=== PATIENT | male | born 2005 | race Caucasian/White ===

== ENCOUNTER 2025-02-16 17:27 | Inpatient (IN) ==
[2025-02-16 17:50] LABS: Hematocrit (blood only) 43.4 % (42.0-52.0); Hemoglobin 14.9 g/dl (14.0-18.0); Immature Granulocytes # (auto) 0.03 K/uL (0.01-0.20); Immature Granulocytes % (auto) 0.3 %; Mean Corpuscular Hemoglobin 30.7 pg (25.0-34.0); Mean Corpuscular Volume 89.5 fL (80.0-100.0); Platelet Count 258 K/uL (130-400); RDW Standard Deviation 42.2 fL (36.4-46.3); Red Blood Count 4.85 M/uL (4.70-6.10); White Blood Count 8.86 K/ul (4.8-10.8)
[2025-02-16 17:53] LABS: Appearance Urine Clear (Clear); Glucose Urine UA Negative (Negative)
[2025-02-16 18:08] LABS: Alanine Aminotransferase 15.0 U/L (7-52); Albumin Globulin Ratio 1.3 (0.9-2); Albumin Level 4.6 gm/dl (3.4-5.0); Alkaline Phosphatase 70.0 U/L (34-104); Anion Gap 8.0 (3-11); Bilirubin,Total 0.6 mg/dl (0.2-1.0); Blood Urea Nitrogen 31.0 mg/dl (6-23); Calcium 9.3 mg/dl (8.6-10.3); Carbon Dioxide 26.0 mmol/L (21-32); Chloride 102.0 mmol/L (98-107); Creatinine Clr Calc Pharmacy 87.7 ml/min; Globulin 3.5 gm/dl (2.5-4.0); Glucose 96.0 mg/dl (70-99(Fasting)); Potassium 4.1 mmol/L (3.5-5.1); Sodium 136.0 mmol/L (136-145); Total Protein 8.1 gm/dl (6.0-8.3)
[2025-02-16 18:22] LABS: Acetaminophen < 3 ug/ml (10-30); Salicylate < 3.0 mg/dl (3.0-30)
[2025-02-16 18:24] LABS: Thyroid Stimulating Hormone 7.259 uIu/ml (0.300-4.500)
[2025-02-16 18:27] LABS: Amphetamines+Metham, Urine Neg (Neg); MDMA (Ecstacy), Urine Neg (Neg); Marijuana, Urine Neg (Neg)
[2025-02-16 18:58] LABS: T4 Free Thyroxine 0.91 ng/dl (0.61-1.60)
--- NOTE | 2025-02-16 19:27 | Emergency Department Note ---
Impression & Plan Major depressive disorder with current active episode ED Provider Note NAME: ANN SEVERINO AGE: 19 SEX: M : 2005 ARRIVES VIA: [employer] INFORMANT: Patient, ED PROVIDER(S): Gilbert Cervantes DO CHIEF COMPLAINT: psychiatric evaluation HPI: This is a 19-year-old male with the PMHx of depression following up with therapist presenting to [facility] for further evaluation of suicidal ideations. Patient is accompanied by police who provide additional history. police state the patient was cooperative en route. Patient reports intrusive suicidal ideations. He recently broke up with a long-term partner. Patient states that he visited a parking garage roof multiple times near his apartment with plans for suicide. He states that he wrote a suicide note but stopped in the middle of it yesterday as he has a good social support system and felt that it was unnecessary. Patient now presents for evaluation. He does report suicidal ideations. He denies homicidal ideations. No auditory or visual hallucinations. Patient states that his therapist recommended emergency department evaluation. Patient offers no other complaints, today. ADDITIONAL HISTORY OBTAINED: Per HPI Chronic Medical/Social Conditions Affecting Care: Per HPI PAST MEDICAL HISTORY: See Below PAST SURGICAL HISTORY: See Below FAMILY HISTORY: See Below SOCIAL HISTORY: See Below HOME MEDICATIONS: See Below ALLERGIES: See Below VITALS: See Below PHYSICAL EXAMINATION: GENERAL: Alert, well developed, well nourished, no acute distress HEAD: Normocephalic, atraumatic EYES: EOM's intact, sclera anicteric, conjunctiva clear OROPHARYNX: Airway patent and mucous membranes moist LUNGS: No respiratory distress, normal respiratory rate and effort HEART: Well perfused, regular rate ABDOMEN: Abdomen non-distended SKIN: Normal color, dry EXTREMITIES: No gross deformities, no edema NEURO: Alert, oriented x3, appropriate for age, moves all four extremities, normal speech PSYCH: depressed mood, flat affect, no psychosis MEDICAL DECISION MAKING: Differential diagnoses includes but not limited to suicidal ideation, homicidal ideation, hallucinations, depression, anxiety, personality disorder In summary, this is a 19-year-old who presented with suicidal ideations. Differential as above. Nursing notes and pertinent past medical records reviewed. Vital signs reviewed and the patient is afebrile and HDS. History, physical obtained and significant for depression. While the patient does have a social support system as well as a therapist, I have deemed the patient high risk for suicide as he has discussed with me suicidal behavior and he seems to be a significant threat to himself. He later told case management that he did not feel he needed to stay in the hospital. I feel this is very unsafe for the patient to be discharged at this time. 302 to be petitioned if he is unwilling to voluntarily commit to inpatient stay. Psychiatric labs including CBC, CMP, ethanol, COVID-19, U tox ordered to evaluate for their symptoms. Labs unremarkable to explain symptoms. 201 signed after discussion and informed consent with the patient. Patient is medically appropriate for psychiatric evaluation. Based on the above, including the patient's age, coexisting illnesses, labs, imaging, and exam findings the decision to treat as an inpatient. I discussed my findings with the patient and they understand and agree with the treatment plan. Vitals Q shift ordered. Med rec ordered. Care Management consulted. Diet ordered with suicide precautions and one-to-one precautions. [facility]. Consults/Care Managements Discussions: Per [facility] ER treatment provided: See above Procedures:none Critical Care: None The chart was completed utilizing [employer] Speech voice recognition software. Grammatical errors, random word insertions, pronoun errors, and incomplete sentences are an occasional consequence of this system due to software limitations, ambient noise, and hardware issues. Any formal questions or concerns about the content, text, or information contained within the body of this dictation should be directly addressed to the physician for clarification. Past Med/Surg History Problem List (Updated 02/17/25 @ 01:44 by Gilbert Cervantes DO) Major depressive disorder with current active episode (Acute) Social History Smoking Status: Never smoker Preferred Language: Sudanese Communication Ability: Effective [employer] Required: No Beliefs That Will Affect Care: None Feels Safe at Home: Yes Gender Identity: Male Assistive Devices: None Allergies Allergies Allergy/AdvReac Type Severity Reaction Status Date / Time No Known Allergies Allergy Verified 02/16/25 20:28 Home Meds Home Medications Medication Instructions Recorded Confirmed No Known Home Medications 02/16/25 02/16/25 Results & Data (ED) Vital Signs Vital Signs - 24 hr 02/16/25 17:29 02/16/25 19:28 02/16/25 19:28 Temperature 37.0 C Temperature Source Oral Pulse Rate 72 Pulse Rate [Finger] 65 Respiratory Rate 20 16 Respiratory Effort / Characteristics Non-Labored Spontaneous Non-Labored Spontaneous Respiratory Depth Normal Normal Respiratory Pattern Regular Regular Blood Pressure 172/76 H Blood Pressure [Left Arm] 130/74 Blood Pressure Mean 108 Blood Pressure Mean [Left Arm] 92 Blood Pressure Position [Left Arm] Sitting Pulse Oximetry 98 99 99 Oxygen Delivery Method Room Air Room Air Room Air Sepsis Recent Fever Within 48 Hours No Sepsis New/Unexplained Change in Mental Status N/A Sepsis Action Taken by Nursing No Action Required Laboratory Data 02/16/25 17:35 02/16/25 17:35 Lab Results 02/16/25 02/16/25 Range/Units 17:35 17:45 WBC 8.86 (4.8-10.8) K/ul RBC 4.85 (4.70-6.10) M/uL Hgb 14.9 (14.0-18.0) g/dl Hct 43.4 (42.0-52.0) % MCV 89.5 (80.0-100.0) fL MCH 30.7 (25.0-34.0) pg MCHC 34.3 (32.0-36.0) g/dL RDW Std Deviation 42.2 (36.4-46.3) fL RDW Coeff of Jairon 12.9 (11.5-14.5) % Plt Count 258 (130-400) K/uL MPV 9.6 (9.4-12.4) fL Immature Gran % (Auto) 0.3 % Neut % (Auto) 66.4 % Lymph % (Auto) 23.3 % Johnston % (Auto) 7.6 % Eos % (Auto) 1.9 % Baso % (Auto) 0.5 % Neut # (Auto) 5.89 (1.40-6.50) K/uL Lymph # (Auto) 2.06 (1.20-3.40) K/uL Johnston # (Auto) 0.67 H (0.11-0.59) K/uL Eos # (Auto) 0.17 (0.00-0.50) K/uL Baso # (Auto) 0.04 (0.00-0.20) K/uL Immature Gran # (Auto) 0.03 (0.01-0.20) K/uL Sodium 136 (136-145) mmol/L Potassium 4.1 (3.5-5.1) mmol/L Chloride 102 (98-107) mmol/L Carbon Dioxide 26 (21-32) mmol/L Anion Gap 8 (3-11) BUN 31 H (6-23) mg/dl Creatinine 1.30 (0.6-1.4) mg/dl Est Cr Clr Drug Dosing 87.7 ml/min eGFR 80.65 BUN/Creatinine Ratio 23.8 H (10-20) Glucose 96 (70-99(Fasting)) mg/dl Calcium 9.3 (8.6-10.3) mg/dl Total Bilirubin 0.6 (0.2-1.0) mg/dl AST 20 (13-39) U/L ALT 15 (7-52) U/L Alkaline Phosphatase 70 (34-104) U/L Total Protein 8.1 (6.0-8.3) gm/dl Albumin 4.6 (3.4-5.0) gm/dl Globulin 3.5 (2.5-4.0) gm/dl Albumin/Globulin Ratio 1.3 (0.9-2) TSH 7.259 H (0.300-4.500) uIu/ml Free T4 0.91 (0.61-1.60) ng/dl Urine Color Yellow Urine Appearance Clear (Clear) Urine pH 6.0 (4.5-7.5) Ur Specific [place] 1.024 (1.000-1.030) Urine Protein Negative (Negative) Urine Glucose (UA) Negative (Negative) Urine Ketones Trace H (Negative) Urine Blood Negative (Negative) Urine Nitrite Negative (Negative) Urine Bilirubin Negative (Negative) Urine Urobilinogen Negative (Negative) Ur Leukocyte Esterase Negative (Negative) Urine Comment Salicylates < 3.0 L (3.0-30) mg/dl Urine Opiates Screen Neg (Neg) Ur Methadone, Qual Neg (Neg) Urine Fentanyl Screen Neg (Neg) Acetaminophen < 3 L (10-30) ug/ml Urine Barbiturates Neg (Neg) Ur Phencyclidine (PCP) Neg (Neg) U Amphetamin/Meth Scrn Neg (Neg) MDMA (Ecstasy) Screen Neg (Neg) U Benzodiazepines Scrn Neg (Neg) Ur Cocaine Metabolite Neg (Neg) U Marijuana (THC) Screen Neg (Neg) Ethyl Alcohol mg/dL < 10.0 (<10.0) mg/dl SARS-CoV-2, RNA, NAAT NEGATIVE (NEGATIVE) Discharge Plan Visit Data Chief Complaint: Psychiatric Symptoms/Problems ED Provider: Gilbert Cervantes Discharge Problem: Major depressive disorder with current active episode Patient Disposition: Admitted As Inpatient Condition: Serious
[2025-02-16] MEDS ORDERED: BISMUTH SUBSALICYLATE 262 MG CHEW PO PRN (21:22)
[2025-02-16] MEDS ORDERED: MAGNESIUM HYDROXIDE SUSP 30 ML UDC PO PRN (21:22)
[2025-02-16] MEDS ORDERED: ACETAMINOPHEN 325 MG TAB PO PRN (21:22)
[2025-02-16] MEDS ORDERED: SODIUM CHLORIDE 0.65% NA SOLN 45 ML (OCEAN) PRN (21:22)
[2025-02-16] MEDS ORDERED: ALUMINUM/MAGNESIUM SUSP 30 ML UDC PO PRN (21:22)
--- NOTE | 2025-02-17 08:26 | History & Physical ---
Date of Service February 17, 2025 Impression / Recommendations Impression Patient is a 19-year-old male [employer] re[employer], admitted on a 201 for recent suicidal ideation, and acts of furtherance including going to potential suicide site and initiation of a suicide letter. Patient has many strengths, and has been consistently denying significant depression. However, he does report racing thoughts and excessive rumination, which can lead him to hopelessness and intense distress. Does report a chronic history of anxiety, especially as it relates to self evaluation and interpersonal relationships. On the one hand, he has is able to identify multiple sources of self-esteem (which are primarily achievement based), and on the other hand he struggling with questioning his worth and purpose in the aftermath of a breakup. Diagnostically, I think that this best represents a baseline generalized anxiety disorder, now with an adjustment disorder with depressed mood. at this time, not suspecting a borderline personality disorder or cluster B features, since it sounds like he has many stable relationships, and this break-up was a significant trigger because they have been together about 2 years. Discussed with patient that my major concern is that he is downplaying the seriousness of his suicidality recently, and that he did not follow through with his safety plan when symptoms worsened on Friday. My primary goal for him during this admission is to create a safety plan that he can easily access and use if his symptoms worsen after here. Also encouraged building self-awareness about his warning signs, so he can enact his coping skills before things get out of hand. Encourage participation in groups, completion of his safety plan, and scheduling a family meeting. I also brought up the possibility of medication. We discussed SSRIs, which can decrease the intensity of anxiety symptoms for him. Specifically, he may find he has fewer racing thoughts and ruminations. This time, patient declines medication, as he is concerned about possible side effects. I did encourage him to consider ongoing outpatient therapy, and reconsider medication if he is not seeing much improvement with therapy alone. Recommended patient to stay for at least several days in order to complete the steps and ensure a more thorough safety plan before he leaves. After meeting with me, he did request to sign a 72-hour notice. Overall, I spent a total of 80 minutes on this patient's care, including review of chart/records, direct evaluation of the patient, ordering medication, coordination with nursing, interdisciplinary team meeting, and documentation. (1) Generalized anxiety disorder: (2) Adjustment disorder with depressed mood: Plan The patient was admitted to the [facility] ([facility] mental health unit) on q15 min checks (behavioral with suicide precautions) for safety. The patient will participate in group, recreational, and milieu therapies and will be offered additional individual and family sessions as clinically appropriate. New medications initiated: none Continue the following home medications: none The following PRN medications will be started as well: Vistaril as needed for anxiety and sleep Milk of mag, Pepto, Maalox as needed GI distress Tylenol as needed pain Inventory Assets Strengths: Supportive family good social network referred self to therapy initially future oriented, and internal locus of control Needs: increase self-awareness about triggers and warning signs identifying barriers to enacting his safety plan involvement of social supports in his safety plan moving forward referral for outpatient therapy (suspecting [facility] will not take him back) Suicide Risk Level Suicide Risk Level: Moderate (q15 min suicide checks) Suicide Risk Level Comments: moderate, given recent SI, with plan and some furtherance. Patient currently denying suicidal ideation. He is able to identify many reasons to continue living. He reports feeling safe on the unit, and can reach out to staff if his symptoms worsen. Risk Factors Assessment Male: Yes : No Do You Have Access To A Gun?: No Health Problems: No Mental Health Diagnoses: Yes Substance Use Disorders: No Previous Attempt: No Family History of Suicide: No Previous Psychiatric Hospitalization: No Hopelessness: Yes ( Intermittently present, but denies currently) Protective Factors Assessment [employer] Beliefs: No : No Responsible for Young Children: No Employed: No Stable Relationships: Yes Supportive Family: Yes Good Rapport with Provider: No Psychiatric History Identifying Data ANN SEVERINO is a 19-year-old [facility], originally from the [facility], who has a recent history of depression and was admitted on 02/16/25 20:35 on a 201 voluntary commitment for suicidal ideation with a plan. Chief Complaint " I don't know why it". History of Present Illness police state the patient was cooperative en route. Patient reports intrusive suicidal ideations. He recently broke up with a long-term partner. Patient states that he visited a parking garage roof multiple times near his apartment with plans for suicide. He states that he wrote a suicide note but stopped in the middle of it yesterday as he has a good social support system and felt that it was unnecessary. Patient now presents for evaluation. He does report suicidal ideations. He later told case management that he did not feel he needed to stay in the hospital. I feel this is very unsafe for the patient to be discharged at this time. 302 to be petitioned if he is unwilling to voluntarily commit to inpatient stay. Documentation received from [facility] and states "suicidal, went to parking garage at [facility] [address] [facility] on Friday, considered jumping - looked down from top of parking garage; was there for 15 minutes, left and went back to apartment and stated to write "note of intent" to all my loved ones and friends. Feeling hopeless, recent hitting self in the head. No history of attempts, no history of prior hospitalizations. Ann saw [facility] urgently and followed up on Friday and just started round of short term therapy at [facility]. Hx of brief therapy in high school for anxiety. He reported current stressors as recent break up after 2 year relationship, feeling very sad and all he can do is think about it. He reported social alcohol consumption, typically once weekly. Ann stated "I think what I said was taken out of context." Ann stated "I only visited the parking deck to put myself in that situation. I just wanted to see what it felt like. I wasn't going to act upon it." When asked about writing suicide notes, Ann stated "I had to write things out to focus on things I appreciate. I wouldn't call it a suicide note. 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 He stated he has a 4.0 GPA and is not overwhelmed with school and stated "I perform well." He has no inpatient treatment history and has no outpatient providers. Ann stated "I came because my therapist recommended. I don't think I need to stay in the hospital. I have a great support system of family and friends. I was merely walking through my thoughts boldly." slept 6.5 hours [employer] major[employer] in [employer] wanted to sign 72 hour notice immediately hopeless breakup with GF of 2 years a little overwhelemd with school puts a lot of pressure on himself from [place], parents plan to come visit therapy in HS - sports related anxiety oldest sibling mom and dad when he was 2 half siblings ages 10 and younger both parents are remarried mom was 14 y/o when she had him cooperative intramural football with friends - missing out on a game tonight recently going to [facility] Patient presented to the emergency room at the request of his [facility] therapist. I did review the notes sent from [facility]. Patient has seen his therapist there a total of 3 times. His initial session, he spoke about recent symptoms of depression,, and more chronic anxiety. Depression was related mostly to recent break-up of his partner with his partner of 2 years, and struggle adjusting to t hat. Chronic anxiety tends to take the form of high expectations of himself and experiencing pressure or tension from those expectations. At his first session, patient did state he had recurrent suicidal ideations, and indicated that if he had a plan, I would be to jump off a parking garage. He important reported no improvement at his second session with her, and they created a safety plan for if the symptoms got worse. Finally at his last appointment yesterday, patient reported that he had recently gone to the roof of a local parking garage, and considered jumping off. He ultimately left on his own, but then went home and starting writing a suicide note. Throughout the course of his writing, he was able to reframe and focus on the people in his life that are important. He did not make any further suicidal planning or gestures after that. Upon hearing this report, his [facility] therapist referred the patient for evaluation. Patient was evaluated in the emergency room, and medically cleared. He agreed to sign on a 201. Upon arrival to the unit, he has been cooperative, but also voicing that he would like a quick discharge. He discussed wanting to sign a 72-hour notice almost immediately, but agreed to wait to talk to the doctor today. He has been visible out of his room and attended some programming this morning. Patient has been voicing future-oriented thoughts, including wanting to attend an intermural football game and hanging out with friends. He slept 6-1/2 hours last night I met with the patient privately in his room. He reports a "constant sadness", which he describes as in the background of his life over the recent months since his break-up. However, he endorses that has not affected his sleep, his appetite, or motivation. States "I have not lost sight of my goals." He continues to attend classes and participate in his extracurricular activities. He is quick to identify multiple supportive people in his life and reasons to live. He mostly focused on the positives in his life and his achievements. He did need encouragement to describe what sort of actual suicidal thoughts he has been having. He said it would often occur when he was c ontemplating "what role love plays in my life". At times, he become hopeless about his future, and what he believes to be the meaning and purpose of life. Sometimes this would then lead to a question of "am I unlovable?". Said "I am able to bring myself back" from that question most of the time, however at times the distress around this type of thinking is intense, which is when SI would occur. Today, he says he is "never wanted to leave this earth", but has had thoughts of "I cannot live like this anymore." I challenged him on this, since he can continuously reported specifically suicidal statements to his therapist. He feels this was misconstrued and was never that intense. I had him recount the events of Friday. He said he had reached out to his ex, and it had not gone well. He started "overthinking", and developed some hopelessness. He acknowledges he did not reach out to anyone when his mood worsened that day. He also cannot identify any coping skills he utilized as par t of his safety plan that day. He says he is not sure why he went to the parking garage. At times he said to various staff "I just wanted to see what it felt like to visit that place." At other times he said "I was merely walking through my thoughts boldly." He says he was on the top floor, but there was a fence but he was not standing on any type of ledge, and there was a fence around the perimeter, so he was not in significant danger. Next, he said at first that he went home and was journaling to process his feelings. With further discussion, he acknowledged that he started writing with a suicidal intention, and then his intention shifted to more of a journal entry as he considered his loved ones. He continues to deny any further suicidal ideation. He also reports he is not particularly depressed on a chronic basis. SIGECAPS negative. He remains motivated to get back to his typical life. Past Psychiatric History Previous Psych History: Brief history of outpatient therapy in teenage years for sports related performance anxiety no history of psychiatric medication trials no past suicide attempts no past hospitalizations describes self as always having some social anxiety, wondering what people are thinking of him, or second-guessing what he says when he meets someone new. Current Psychiatric Diagnosis: no diagnosis, does mention anxiety symptoms in past during High School Do You Have Access To A Gun?: No History of Previous Suicide Attempt: No Allergies Allergy/AdvReac Type Severity Reaction Status Date / Time No Known Allergies Allergy Verified 02/16/25 20:28 Home Medications Medication Instructions Recorded Confirmed Type No Known Home Medications 02/16/25 02/16/25 History Family History Family History of: None Alcohol History Hx of Alcohol Use Over the Past 12 Months: Yes (socially 1x/wk) AUDIT Total Score: 3 Smoking Use Have You Smoked or Used Tobacco Products in the Last 30 Days: No Smoking Status: Never smoker Smoking packs per day: 0 Substance History Hx of Prescription Med Misuse Over the Past 12 Months: No Hx of Over the Counter Med Misuse Over the Past 12 Months: No Hx of Inhalent Misuse Over the Past 12 Months: No Hx of Organic Substance Use Over the Past 12 Months: No Hx of Illegal Substances/Street Drug Use Over Past 12 Months: No Problems as a Result of Past Substance Use: None Identified Personal History [facility] [facility] [place]: Patient's mother was 14 years old when she had him. His parents were together they and early in his life. He split his time 50-50 between parents growing up. He is their only shared child. They have both remarried and had additional children. He is the oldest sibling, and the next youngest is 10 years old. Has said "I will try to be a good example for them." Says that the divorce was not a challenge to him. "I honestly never had a problem with that. I liked the switch out." Feels loved and supported by his family. Played sp orts in teenage years. Did well academically and socially. Was a leader of some extracurricular groups in high school. Says "I always wanted to go to [employer] my whole life." Highest Grade Completed: Some College ( [employer]- double majoring in finance and accounting) Employment Status: Student Marital Status: Single Number Of Children: 0 Beliefs That Will Affect Care: None Current Legal Problems: No Hx Traumatic Life Events: No Patient History Social History Smoking Status: Never smoker Preferred Language: Kinyarwanda Communication Ability: Effective Labor And Employment Paralegal Required: No Beliefs That Will Affect Care: None Feels Safe at Home: Yes Gender Identity: Male Assistive Devices: None Review of Systems Review of Systems: Constitutional: No Weight Change, No Fever, No Chills, No Night Sweats ENT/Mouth: No Hearing Changes, No Nasal Congestion, No sore throat, No Swallowing Difficulty Eyes: No Vision Changes Cardiovascular: No Chest Pain, No SOB, No Edema, No Palpitations Respiratory: No Cough, No Wheezing, No Dyspnea Gastrointestinal: No Nausea, No Vomiting, No Diarrhea, No Constipation Urinary: No Frequency, No Hematuria, No Urinary Incontinence, No Dysuria Musculoskeletal: No Arthralgias, No Myalgias, No Joint Stiffness, Skin: No Skin Lesions, No Pruritis, No Hair Changes, Neuro: No Weakness, No Numbness, No Paresthesias, No Dizziness, No Headache, No Coordination Changes, No Recent Falls Heme/Lymph: No Bruising, No Bleeding Endocrine: No Polyuria, No Polydipsia, No Temperature Intolerance Physical Exam Psychiatric: Orientation: alert and oriented x 3 Apperance: appropriately dressed, appropriately groomed and appeared stated age Eye Contact: good eye contact Motor Behavior: steady gait and station and no abnormal motor movements calm Speech: normal rate/rhythm/volume of speech Affect: + anxious affect and + constricted affect Mood: + anxious mood Thought Process: goal directed thought process, linear/logical thought process, clear/coherent thought process and thought association intact Thought Content: + cognitive distortions and reality based without delusions Suicidal Thoughts: denies suicidal thoughts, denies suicidal plan and denies suicidal intent has had intermittently, with the plan, and some acts of furtherance. Denies SI today. Homicidal Thoughts: denies homicidal thoughts, denies homicidal plan and denies homicidal intent Hallucinations: no auditory hallucinations and no visual hallucinations Cognition: recent memory grossly intact, remote memory grossly intact, attention grossly intact and language grossly intact Estimated Intelligence: average estimated intelligence and consistent with education level Insight: + limited insight Judgment: + limited judgement Vital Signs (Past 24 Hours): Last Vital Signs Temp 36.7 C 02/17/25 06:15 Pulse 64 02/17/25 06:15 Resp 16 02/17/25 06:15 BP 133/75 02/17/25 06:15 Pulse Ox 99 02/16/25 21:24 O2 Del Method Room Air 02/16/25 21:24 Physical Examination: A physical exam was performed in the ED by Dr. Gilbert Cervantes for the purposes of medical clearance. I accept that physical as correct and adequate for the purposes of the inpatient physical exam. Results & Data ([facility]) Laboratory Results Laboratory Results - last 24 hr 02/16/25 02/16/25 17:35 17:45 WBC 8.86 RBC 4.85 Hgb 14.9 Hct 43.4 MCV 89.5 MCH 30.7 MCHC 34.3 RDW Std Deviation 42.2 RDW Coeff of Jairon 12.9 Plt Count 258 MPV 9.6 Immature Gran % (Auto) 0.3 Neut % (Auto) 66.4 Lymph % (Auto) 23.3 Ford % (Auto) 7.6 Eos % (Auto) 1.9 Baso % (Auto) 0.5 Neut # (Auto) 5.89 Lymph # (Auto) 2.06 Ford # (Auto) 0.67 H Eos # (Auto) 0.17 Baso # (Auto) 0.04 Immature Gran # (Auto) 0.03 Sodium 136 Potassium 4.1 Chloride 102 Carbon Dioxide 26 Anion Gap 8 BUN 31 H Creatinine 1.30 Est Cr Clr Drug Dosing 87.7 eGFR 80.65 BUN/Creatinine Ratio 23.8 H Glucose 96 Calcium 9.3 Total Bilirubin 0.6 AST 20 ALT 15 Alkaline Phosphatase 70 Total Protein 8.1 Albumin 4.6 Globulin 3.5 Albumin/Globulin Ratio 1.3 TSH 7.259 H Free T4 0.91 Urine Color Yellow Urine Appearance Clear Urine pH 6.0 Ur Specific [place] 1.024 Urine Protein Negative Urine Glucose (UA) Negative Urine Ketones Trace H Urine Blood Negative Urine Nitrite Negative Urine Bilirubin Negative Urine Urobilinogen Negative Ur Leukocyte Esterase Negative Urine Comment Salicylates < 3.0 L Urine Opiates Screen Neg Ur Methadone, Qual Neg Urine Fentanyl Screen Neg Acetaminophen < 3 L Urine Barbiturates Neg Ur Phencyclidine (PCP) Neg U Amphetamin/Meth Scrn Neg MDMA (Ecstasy) Screen Neg U Benzodiazepines Scrn Neg Ur Cocaine Metabolite Neg U Marijuana (THC) Screen Neg Ethyl Alcohol mg/dL < 10.0 SARS-CoV-2, RNA, NAAT NEGATIVE Current Inpatient Medications Current Inpatient Medications: Current Inpatient Medications Acetaminophen (Acetaminophen 325 Mg Tab) 650 mg PO Q4H PRN PRN Reason: Headache or Minor Fever Stop: 03/18/25 21:21 Al Hydrox/Mg Hydrox/Simethicone (Aluminum/Magnesium Susp 30 Ml Udc) 30 ml PO Q4H PRN PRN Reason: GI Upset Stop: 03/18/25 21:21 Bismuth Subsalicylate (Bismuth Subsalicylate 262 Mg Chew) 2 tab PO Q30M PRN PRN Reason: Loose Stool/Diarrhea Stop: 03/18/25 21:21 Hydroxyzine HCl (Hydroxyzine Hcl 25 Mg Tab) 50 mg PO HSZ PRN PRN Reason: Insomnia Stop: 03/18/25 21:21 Hydroxyzine HCl (Hydroxyzine Hcl 25 Mg Tab) 25 mg PO Q4H PRN PRN Reason: Anxiety Stop: 03/18/25 21:21 Magnesium Hydroxide (Magnesium Hydroxide Susp 30 Ml Udc) 30 ml PO DAILY PRN PRN Reason: Constipation Stop: 03/18/25 21:21 Sodium Chloride (Sodium Chloride 0.65% Na Soln 45 Ml ([place])) 1 - 2 sprays NA PRN PRN PRN Reason: Nasal Dryness/Congestion Stop: 03/18/25 21:21
--- NOTE | 2025-02-18 08:38 | Psychiatric Progress Note ---
Date of Service February 18, 2025 Impression / Recommendations Impression Patient is a 19-year-old male [employer], admitted on a 201 for recent suicidal ideation, and acts of furtherance including going to potential suicide site and initiation of a suicide letter. Patient has many strengths, and has been consistently denying significant depression. However, he does report racing thoughts and excessive rumination, which can lead him to hopelessness and intense distress. Does report a chronic history of anxiety, especially as it relates to self evaluation and interpersonal relationships. On the one hand, he has is able to identify multiple sources of self-esteem (which are primarily achievement based), and on the other hand he struggling with questioning his worth and purpose in the aftermath of a breakup. Diagnostically, I think that this best represents a baseline generalized anxiety disorder, now with an adjustment disorder with depressed mood. at this time, not suspecting a borderline personality disorder or cluster B features, since it sounds like he has many stable relationships, and this break-up was a significant trigger because they have been together about 2 years. Discussed with patient that my major concern is that he is downplaying the seriousness of his suicidality recently, and that he did not follow through with his safety plan when symptoms worsened on Friday. My primary goal for him during this admission is to create a safety plan that he can easily access and use if his symptoms worsen after here. Also encouraged building self-awareness about his warning signs, so he can enact his coping skills before things get out of hand. Encourage participation in groups, completion of his safety plan, and scheduling a family meeting. I also brought up the possibility of medication. We discussed SSRIs, which can decrease the intensity of anxiety symptoms for him. Specifically, he may find he has fewer racing thoughts and ruminations. This time, patient declines medication, as he is concerned about possible side effects. I did encourage him to consider ongoing outpatient therapy, and reconsider medication if he is not seeing much improvement with therapy alone. Recommended patient to stay for at least several days in order to complete the steps and ensure a more thorough safety plan before he leaves. After meeting with me, he did request to sign a 72-hour notice. Overall, I spent a total of 80 minutes on this patient's care, including review of chart/records, direct evaluation of the patient, ordering medication, coordination with nursing, interdisciplinary team meeting, and documentation. Inventory Assets Strengths: Supportive family good social network referred self to therapy initially future oriented, and internal locus of control Needs: increase self-awareness about triggers and warning signs identifying barriers to enacting his safety plan involvement of social supports in his safety plan moving forward referral for outpatient therapy (suspecting [facility] will not take him back) Suicide Risk Level Suicide Risk Level: Moderate (q15 min suicide checks) Suicide Risk Level Comments: moderate, given recent SI, with plan and some furtherance. Patient currently denying suicidal ideation. He is able to identify many reasons to continue living. He reports feeling safe on the unit, and can reach out to staff if his symptoms worsen. Risk Factors Assessment Male: Yes : No Do You Have Access To A Gun?: No Health Problems: No Mental Health Diagnoses: Yes Substance Use Disorders: No Previous Attempt: No Family History of Suicide: No Previous Psychiatric Hospitalization: No Hopelessness: Yes ( Intermittently present, but denies currently) Protective Factors Assessment [employer] Beliefs: No : No Responsible for Young Children: No Employed: No Stable Relationships: Yes Supportive Family: Yes Good Rapport with Provider: No Interval History Chief Complaint "[]". Review of Systems Sleep Information Total Hours of Sleep: 8 Meal Information Percent Meal Consumed - Breakfast: 100 Percent Meal Consumed - Lunch: 75 Percent Meal Consumed - Dinner: 100 Subjective Subjective Patient was seen & assessed and interval progress reviewed with treatment team. per report: going to groups showered unprompted visited with parents yesterday, positive visit support meeting scheduled for tomorrow mood 11/21 and feeling "reinvigorated" slept well - 8 hrs Physical Exam Vital Signs (Past 24 Hours) Last Vital Signs Temp 36.2 C L 02/18/25 06:21 Pulse 65 02/18/25 06:22 Resp 16 02/18/25 06:21 BP 131/81 02/18/25 06:22 Pulse Ox 99 02/16/25 21:24 O2 Del Method Room Air 02/16/25 21:24 A physical exam was performed in the ED by Dr. Gilbert Cervantes for the purposes of medical clearance. I accept that physical as correct and adequate for the purposes of the inpatient physical exam. Results & Data ([facility]) Current Inpatient Medications Current Inpatient Medications: Current Inpatient Medications Acetaminophen (Acetaminophen 325 Mg Tab) 650 mg PO Q4H PRN PRN Reason: Headache or Minor Fever Stop: 03/18/25 21:21 Al Hydrox/Mg Hydrox/Simethicone (Aluminum/Magnesium Susp 30 Ml Udc) 30 ml PO Q4H PRN PRN Reason: GI Upset Stop: 03/18/25 21:21 Bismuth Subsalicylate (Bismuth Subsalicylate 262 Mg Chew) 2 tab PO Q30M PRN PRN Reason: Loose Stool/Diarrhea Stop: 03/18/25 21:21 Hydroxyzine HCl (Hydroxyzine Hcl 25 Mg Tab) 50 mg PO HSZ PRN PRN Reason: Insomnia Stop: 03/18/25 21:21 Hydroxyzine HCl (Hydroxyzine Hcl 25 Mg Tab) 25 mg PO Q4H PRN PRN Reason: Anxiety Stop: 03/18/25 21:21 Magnesium Hydroxide (Magnesium Hydroxide Susp 30 Ml Udc) 30 ml PO DAILY PRN PRN Reason: Constipation Stop: 03/18/25 21:21 Sodium Chloride (Sodium Chloride 0.65% Na Soln 45 Ml ([place])) 1 - 2 sprays NA PRN PRN PRN Reason: Nasal Dryness/Congestion Stop: 03/18/25 21:21 Mental Health & Subst Abuse Tx Therapist Name of Therapist: Hallie ([facility]) Date of Therapist Appointment: 02/23/25 Time of Therapist Appointment: 3:30pm Manager Ecommerce Name of Manager Ecommerce: None Post Discharge Appointments Primary Care Physician Name Of Family Doctor/PCP: Dr. Delacruz
--- NOTE | 2025-02-18 14:19 | Discharge Summary ---
Date of Service February 18, 2025 History of Present Illness ANN SEVERINO is a 19-year-old [facility] Reji, originally from the [place] area, who has a recent history of depression and was admitted on 02/16/25 20:35 on a 201 voluntary commitment for suicidal ideation with a plan. Patient presented to the emergency room at the request of his [facility] therapist. I did review the notes sent from [facility]. Patient has seen his therapist there a total of 3 times. His initial session, he spoke about recent symptoms of depression,, and more chronic anxiety. Depression was related mostly to recent break-up of his partner with his partner of 2 years, and struggle adjusting to that. Chronic anxiety tends to take the form of high expectations of himself and experiencing pressure or tension from those expectations. At his first session, patient did state he had recurrent suicidal ideations, and indicated that if he had a plan, I would be to jump off a parking garage. He important reported no improvement at his second session with her, and they created a safety plan for if the symptoms got worse. Finally at his last appointment yesterday, patient reported that he had recently gone to the roof of a local parking garage, and considered jumping off. He ultimately left on his own, but then went home and starting writing a suicide note. Throughout the course of his writing, he was able to reframe and focus on the people in his life that are important. He did not make any further suicidal planning or gestures after that. Upon hearing this report, his [facility] therapist referred the patient for evaluation. Patient was evaluated in the emergency room, and medically cleared. He agreed to sign on a 201. Upon arrival to the unit, he has been cooperative, but also voicing that he would like a quick discharge. He discussed wanting to sign a 72-hour notice almost immediately, but agreed to wait to talk to the doctor today. He has been visible out of his room and attended some programming this morning. Patient has been voicing future- oriented thoughts, including wanting to attend an intermural football game and hanging out with friends. He slept 6-1/2 hours last night I met with the patient privately in his room. He reports a "constant sadness", which he describes as in the background of his life over the recent months since his break-up. However, he endorses that has not affected his sleep, his appetite, or motivation. States "I have not lost sight of my goals." He continues to attend classes and participate in his extracurricular activities. He is quick to identify multiple supportive people in his life and reasons to live. He mostly focused on the positives in his life and his achievements. He did need encouragement to describe what sort of actual suicidal thoughts he has been having. He said it would often occur when he was contemplating "what role love plays in my life". At times, he become hopeless about his future, and what he believes to be the meaning and purpose of life. Sometimes this would then lead to a question of "am I unlovable?". Said "I am able to bring myself back" from that question most of the time, however at times the distress around this type of thinking is intense, which is when SI would occur. Today, he says he is "never wanted to leave this earth", but has had thoughts of "I cannot live like this anymore." I challenged him on this, since he can continuously reported specifically suicidal statements to his therapist. He feels this was misconstrued and was never that intense. I had him recount the events of Friday. He said he had reached out to his ex, and it had not gone well. He started "overthinking", and developed some hopelessness. He acknowledges he did not reach out to anyone when his mood worsened that day. He also cannot identify any coping skills he utilized as part of his safety plan that day. He says he is not sure why he went to the parking garage. At times he said to various staff "I just wanted to see what it felt like to visit that place." At other times he said "I was merely walking through my thoughts boldly." He says he was on the top floor, but there was a fence but he was not standing on any type of ledge, and there was a fence around the perimeter, so he was not in significant danger. Next, he said at first that he went home and was journaling to process his feelings. With further discussion, he acknowledged that he started writing with a suicidal intention, and then his intention shifted to more of a journal entry as he considered his loved ones. He continues to deny any further suicidal ideation. He also reports he is not particularly depressed on a chronic basis. SIGECAPS negative. He remains motivated to get back to his typical life. Physical Exam Psychiatric Orientation: alert and oriented x 3 Apperance: appropriately dressed, appropriately groomed and appeared stated age Eye Contact: good eye contact Motor Behavior: steady gait and station and no abnormal motor movements Speech: normal rate/rhythm/volume of speech Affect: + anxious affect and + constricted affect Mood: + anxious mood Thought Process: goal directed thought process, linear/logical thought process, clear/coherent thought process and thought association intact Thought Content: + cognitive distortions and reality based without delusions Suicidal Thoughts: denies suicidal thoughts, denies suicidal plan and denies suicidal intent Homicidal Thoughts: denies homicidal thoughts, denies homicidal plan and denies homicidal intent Hallucinations: no auditory hallucinations and no visual hallucinations Cognition: recent memory grossly intact, remote memory grossly intact, attention grossly intact and language grossly intact Estimated Intelligence: average estimated intelligence and consistent with education level Insight: good insight Judgment: good judgement Vital Signs (Past 24 Hours) Last Vital Signs Temp 36.2 C L 02/18/25 06:21 Pulse 65 02/18/25 06:22 Resp 16 02/18/25 06:21 BP 131/81 02/18/25 06:22 Pulse Ox 99 02/16/25 21:24 O2 Del Method Room Air 02/16/25 21:24 A physical exam was performed in the ED by Dr. Gilbert Cervantes for the purposes of medical clearance. I accept that physical as correct and adequate for the purposes of the inpatient physical exam. Principal Diagnosis [place] Adjustment disorder with depressed mood Psychiatric Data See daily stay summary. In short, safety was maintained and the patient was cooperative with care. patient attended groups and programming regularly, and participated well. He attended to ADLs independently and appropriately. He interacted with the peers and staff. He requested one-on-one time with the staff counselor I gained good insights during the session. Medication options were discussed, but declined by the pt. Patient and family both advocated for discharge today. A family session was held and safety plan was completed prior to discharge. Day of Discharge Assessment Today the patient voices readiness for discharge. We discussed the new safety plan. They focused on adding activities that he can do on his own, before calling other people, and felt this was missing from the last safety plan. Discussed that if coping skills are utilized but not effective, that would be a reason to call his supportive people. Note improvement in mood and anxiety. They deny thoughts of harm to self or others. Thoughts remain organized and they are clinically improved from admission. There is no evidence of psychosis. They improved in the hospital with support and psychotherapeutic interventions. They agree to keep follow-up appointments. At the time of the discharge they are deemed to be stable and appropriate for outpatient level of care. They are not deemed to be at imminent risk of harm to self or others. They are aware of emergency and crisis services. Knows to call 911 or go to nearest emergency care center if in a crisis which cannot be handled as an outpatient. Transition of Care Transition Of Care Record: was reviewed with the patient Advance Directives Advance Directives Information Provided: No Advance Directives: No Mental Health Advance Directive: No Advance Directives on File: No Living Will: No Power of Laboratory Analyst: No Advance Directives Reason:: Declines as Mental Health Visit. Suicide Risk Level Suicide Risk Level: Low (q15 min observation checks) Suicide Risk Level Comments: Acute risk is low given improvement in mood and denial of SI, lack of access to lethal means, improvement in mood and hopefulness Chronic risk is low given some non-modifiable risk factors: male, , but also with protective factors including support family and stable relationships. Counseled on ways to reduce acute and chronic risk including engaging with outpatient providers, using safety plan if needed, utilizing supports, and using coping skills. Modifiable risk factors of SI and depression were addressed during hospitalization through development of new coping skills, support meeting, and safety planning. Risk Factors Assessment Male: Yes : No Do You Have Access To A Gun?: No Health Problems: No Mental Health Diagnoses: Yes Substance Use Disorders: No Previous Attempt: No Family History of Suicide: No Previous Psychiatric Hospitalization: No Hopelessness: No Protective Factors Assessment Rastafari Beliefs: No : No Responsible for Young Children: No Employed: No Stable Relationships: Yes Supportive Family: Yes Good Rapport with Provider: No Total Time Total Time Spent: Greater Than 30 Minutes Total Time Includes: Examination of the patient, Discharge Planning and As well as (counseling of the patient, interdisciplinary team meeting and documentat ion.) Discharge Data Lab Results 02/16/25 02/16/25 17:35 17:45 WBC 8.86 RBC 4.85 Hgb 14.9 Hct 43.4 MCV 89.5 MCH 30.7 MCHC 34.3 RDW Std Deviation 42.2 RDW Coeff of Jairon 12.9 Plt Count 258 MPV 9.6 Immature Gran % (Auto) 0.3 Neut % (Auto) 66.4 Lymph % (Auto) 23.3 [place] % (Auto) 7.6 Eos % (Auto) 1.9 Baso % (Auto) 0.5 Neut # (Auto) 5.89 Lymph # (Auto) 2.06 [place] # (Auto) 0.67 H Eos # (Auto) 0.17 Baso # (Auto) 0.04 Immature Gran # (Auto) 0.03 Sodium 136 Potassium 4.1 Chloride 102 Carbon Dioxide 26 Anion Gap 8 BUN 31 H Creatinine 1.30 Est Cr Clr Drug Dosing 87.7 eGFR 80.65 BUN/Creatinine Ratio 23.8 H Glucose 96 Calcium 9.3 Total Bilirubin 0.6 AST 20 ALT 15 Alkaline Phosphatase 70 Total Protein 8.1 Albumin 4.6 Globulin 3.5 Albumin/Globulin Ratio 1.3 TSH 7.259 H Free T4 0.91 Urine Color Yellow Urine Appearance Clear Urine pH 6.0 Ur Specific Seney 1.024 Urine Protein Negative Urine Glucose (UA) Negative Urine Ketones Trace H Urine Blood Negative Urine Nitrite Negative Urine Bilirubin Negative Urine Urobilinogen Negative Ur Leukocyte Esterase Negative Urine Comment Salicylates < 3.0 L Urine Opiates Screen Neg Ur Methadone, Qual Neg Urine Fentanyl Screen Neg Acetaminophen < 3 L Urine Barbiturates Neg Ur Phencyclidine (PCP) Neg U Amphetamin/Meth Scrn Neg MDMA (Ecstasy) Screen Neg U Benzodiazepines Scrn Neg Ur Cocaine Metabolite Neg U Marijuana (THC) Screen Neg Ethyl Alcohol mg/dL < 10.0 SARS-CoV-2, RNA, NAAT NEGATIVE Hospital Course (1) Generalized anxiety disorder: (2) Adjustment disorder with depressed mood: Plan 02/18/25: - Good participation/engagement in programming. Pt completed safety plan and gained insight. - Discussed med options again - he'd like to focus on therapy first, but will reach out to PCP if wanting to discuss meds in the future. - Parents are in town, and pt plans to go home to [place] with them for the weekend upon d/c. 02/17/25: [facility] on q15 min checks (behavioral with suicide precautions) for safety. The patient will participate in group, recreational, and milieu therapies and will be offered additional individual and family sessions as clinically appropriate. New medications initiated: none Continue the following home medications: none The following PRN medications will be started as well: Vistaril as needed for anxiety and sleep Milk of mag, Pepto, Maalox as needed GI distress Tylenol as needed pain Mental Health & Subst Abuse Tx Therapist Name of Therapist: Hallie GALVAN) - [facility] Therapist's Date of Therapist Appointment: 02/23/25 Time of Therapist Appointment: 3:30pm Store Shopper Name of Store Shopper: None Post Discharge Appointments Primary Care Physician Name Of Family Doctor/PCP: Dr. Delacruz Other #1: Name of Aftercare Appointment: [facility] advocacy - [facility] post hospitalization zoom meeting Phone Number of Aftercare Appointment: [phone] Date of Aftercare Appointment: 02/22/25 Time of Aftercare Appointment: 9AM Aftercare Appointment Comment: link will be sent to your [facility] email Contact Information Discharge Discharge Address: [address] [place] [id number] Discharge Plan Discharge Items Patient Disposition: Home - Self-Care Reason For Visit: UNSPECIFIED DEPRESSIVE DISORDER Discharge Diagnosis: [place] Adjustment disorder with depressed mood Condition on Discharge: Serious Activity: Resume your previous activity Non-emergency contact: Primary Care Provider and Therapist Call non-emergency contact if: you have any medication questions and your symptoms worsen Follow-up/Referrals: [facility] [Primary Care Provider] - Diet: Regular Addtl Attending Provider Instructions: SPECIAL CARE INSTRUCTIONS: 1. Follow through with your scheduled aftercare appointments. If unable to keep an appointment, please call to reschedule. 2. Utilize new healthy coping skills, anger management skills, and stress management skills learned during your hospitalization. Journal feelings and process them with a support person. Identify stressors or situations that may result in relapse, deterioration or inappropriate behaviors and develop a plan to deal with those issues. 3. If your coping skills are ineffective and you are in crisis, contact your outpatient providers for direction. If unable to reach your providers, please call the [facility] CRISIS LINE AT , go to the [facility] walk-in center at [address], [address], [place], or go to the closest Emergency Room. 4. Avoid alcohol and un-prescribed drugs. 5. You have been provided with the Mental Health Advance Directives Pamphlet for your review. 6. Your condition is stable for discharge to outpatient level of care, but recovery is an ongoing process. Ifthoughts to harm yourself or others return, follow the safety plan developed during your stay. Planning for a safe return home includes securing weapons. Our treatment team recommends weaponsbe removed from the home until your outpatient provider reassesses your progress. In rare cases where the items themselvescannot be removed, guns and ammunitionshould be secured separatelyand keys stored by a reliable personoutside of the home. If you were admitted on an involuntary commitment, the police or other legal authorities may be involved in this process. AFTERCARE APPOINTMENTS: * Please call your insurance company prior to your scheduled appointment to co nfirm your aftercare providers are covered. Take your insurance information to your appointments. WHO TO CALL AND WHEN: Medical Emergencies: For questions or emergencies related to your hospital stay, please contact the Inpatient Behavioral Health Unit at [phone]. A news content specialist is on-call 04/11 for the Behavioral Health Unit for emergencies At any time you feel your situation is an emergency, you may also call 911 immediately. Pending Studies at Discharge: No Stand-Alone Forms: My [facility], Smoking Cessation Medications and DC Order Prescriptions: No Action No Known Home Medications Discharge Orders: Discharge Order (Routine); Ordered 02/18/25 Ordered By: Daniela Coyle/Other Patient Handouts: Spotting Suicide Warning Signs Admission Data Admit Date/Time: 02/16/25 20:35 Attending Provider: Daniela Espinosa Admit Provider: Daniela Espinosa Primary Care Provider: [facility] Coding Level of Care Code 75809 D/C day mgmt > 30 min Diagnoses Generalized anxiety disorder F41.1 Adjustment disorder with depressed mood F43.21
== END 2025-02-18 15:08 | disposition home or self-care (01) | DRG 880 ==
LOC: ED 17:27 → 3S 20:35